=== PATIENT | male | born 1940 | race Caucasian/White ===

== ENCOUNTER 2016-11-09 11:28 | Inpatient (IN) | payer MEDICARE ==
--- NOTE | ~2016-11-09 | DS ---
Unit #: [id number] #: [id number] Patient: LA ZAVALA [id number] [address] [address] [id number] I MR#: [id number] NAME: LA ZAVALA ROOM: 478 Age: 76 Sex: M Admission Date: 11/09/2016 : 1940 Discharge Date: 11/12/2016 Attending Physician: Mynor Dorado M.D. Primary Care Physician: Igor Gilmore M.D. DISCHARGE SUMMARY PRIMARY DIAGNOSIS Right renal mass. PROCEDURE Right hand-assisted laparoscopic nephrectomy. DISPOSITION Home. FOLLOWUP Follow up with Dr. Dorado in one to two weeks. DISCHARGE MEDICATIONS Same as admission medications plus: 1. Colace, #31, twice daily. 2. Eden 5/325, #30, one to two every four to six hours as needed. HISTORY This 76-year-old man with a right renal mass presented for its elective removal. HOSPITAL COURSE The patient was admitted the day of surgery which was uneventfully performed. Postoperative day one, his catheter was removed and he commenced ambulation. The following day, his diet was advanced to clear liquids and on postoperative day three he was tolerating a regular diet with pain well controlled on oral medications and no complaints. On examination, his wound is healing well. His abdomen is soft and appropriate. His discharge hemoglobin is stable at 12.2, BUN 12, creatinine 1.3. He is discharged as noted. Dictated by... Armond Hyatt M.D. KIRSTEN/cora TD: 11/13/2016 09:08 JOB #: [id number] Unit #: [id number] #: [id number] Patient: LA ZAVALA DISCHARGE SUMMARY X Armond Hyatt MD X DISCHARGE SUMMARY
--- NOTE | ~2016-11-09 | OR ---
Unit #: [id number] #: [id number] Patient: LA ZAVALA [id number] [address] [place], [place] [address] [id number] I MR#: [id number] NAME: LA ZAVALA ROOM: 478 Date of Procedure: 11/09/2016 Admission Date: 11/09/2016 Surgeon: Mynor Dorado M.D. : 1940 Attending Physician: Mynor Dorado M.D. Primary Care Physician: Igor Gilmore M.D. OPERATIVE REPORT JOB NOTE: CC: DR. GILMORE. PREOPERATIVE DIAGNOSIS Right renal mass. POSTOPERATIVE DIAGNOSIS Right renal mass. PROCEDURE PERFORMED Right hand-assisted laparoscopic nephrectomy. ANESTHESIA General. CRITICAL CARE RN Manolo Bridges Sr, M.D. ESTIMATED BLOOD LOSS 50 mL. DESCRIPTION OF PROCEDURE After informed consent, he was taken to the operative room, placed under anesthetic, positioned right side up. He was secured to the table at multiple locations using wide tape and surgical strap. The abdomen was prepped and draped in usual sterile fashion. A right lower quadrant incision was made using sharp dissection. The abdomen was insufflated x3. Laparoscopic ports were placed under direct vision. Using sharp and blunt dissection, the white line of Toldt was taken down sharply. The colon was mobilized off the retroperitoneum and kidney. The ureter was located and transected using the laparoscopic stapling device. The dissection was continued up toward the renal hilum and the Jackson maneuver was performed to move the duodenum out of the path of dissection. The renal hilum was located, isolated, and transected using laparoscopic stapling device along with hemoclips. Next, the lateral and posterior dissection was carried out using electrocautery. The most superior part of the dissection was performed and this tissue was and ligated using a stapling device as well. The mass was removed without difficulty. Inspection of the renal hilum with gas pressure on 3 showed no active bleeding. Fascia level for the incision was closed using Vicryl suture in an interrupted and running fashion. The skin edges were approximated using 4-0 Monocryl with Dermabond. A 0.5% Marcaine was used for local anesthetic. All counts were correct at the end of the procedure. The patient tolerated Unit #: [id number] #: [id number] Patient: LA ZAVALA the procedure well, will be taken to recovery and admitted to the hospital. Dictated by... Patrick Squires/faustina TD: 11/10/2016 05:37 JOB #: [id number] OPERATIVE REPORT X Mynor Dorado MD PROCEDURE OPERATIVE NOTE
--- NOTE | ~2016-11-09 | CO ---
Unit #: [id number] #: [id number] Patient: LA ZAVALA [id number] [address] [place], [place] [address] [id number] I MR#: [id number] NAME: LA ZAVALA ROOM: 478 Age: 76 Sex: M Admission Date: 11/09/2016 : 1940 Attending Physician: Mynor Dorado M.D. Primary Care Physician: Igor Gilmore M.D. CONSULTATION REPORT REASON FOR HOSPITALIZATION The patient is a 76-year-old white male with a history of hypertension and hyperlipidemia, who is in for routine physical when it was noted he had microscopic hematuria. He had no symptoms at that time. It was repeated and persisted. CT scan was performed and showed a 3.2 cm enhancing mass in the lateral upper mid right kidney, consistent with renal cell carcinoma. He was referred to Dr. Dorado, who operated yesterday. He had a right nephrectomy. He has done well postoperative, except for some hypertension which has essentially resolved overnight. He has been started back on his home. Currently his is in the room. He is awake, alert and oriented times three, in no acute distress. Pain seems to be well controlled. PAST MEDICAL HISTORY 1. History of hypertension. 2. Hyperlipidemia. 3. BPH. 4. Right nephrectomy. 5. Hyperlipidemia. PAST SURGICAL HISTORY Right lobectomy as a child. SOCIAL HISTORY Prior smoker. Occasional alcohol use. No street drug use. FAMILY HISTORY Noncontributory. ALLERGIES No known drug allergies. PREADMISSION MEDICATIONS 1. Pravastatin 40 mg daily. 2. Amlodipine 5 mg daily. 3. Multivitamins 1 daily. 4. Losartan 50 mg daily. 5. Aspirin 81 mg daily. PHYSICAL EXAMINATION GENERAL: He is awake, alert and oriented times three, in no acute distress. VITALS: Afebrile, pulse 99, respiratory rate 26, blood pressure 135/80, O2 saturations 100% on 2 liters. Unit #: [id number] #: [id number] Patient: LA ZAVALA HEENT: Unremarkable except for nasal cannula in place. NECK: Supple without jugular venous distension, bruits, adenopathy or thyromegaly. CHEST: Clear to auscultation. HEART: Regular rate and rhythm without any murmurs, rubs or gallops. ABDOMEN: No bowel sounds. Incisions appear to be healing well without any evidence of infection. EXTREMITIES: No clubbing, cyanosis or edema. SCDs are noted to be on his bilateral lower extremities. /RECTAL: Deferred. NEUROLOGIC: Grossly intact. DIAGNOSTIC STUDIES LABORATORY: Not available. ASSESSMENT 1. Status post right nephrectomy. 2. Hypertension. 3. Hyperlipidemia. PLAN Home medications have been resumed. His blood pressure is controlled at this point. Will check his a.m. labs. Watch his urine output. He has an incentive spirometer which he is encouraged to use q.2 h. while awake. SCDs are on for DVT prophylaxis. Will follow in the postoperative period for any problems that arise. Thank you for the consultation. Dictated by... Igor Gilmore M.D. MERCEDEZ/tony TD: 11/10/2016 15:55 JOB #: [id number] CONSULTATION REPORT X Igor Gilmore MD X CONSULTATION REPORT
--- NOTE | ~2016-11-09 | A ---
[facility] Nutrition Therapy DATE: 11/11/16 Patient: LA ZAVALA Physician: MIGUEL Address: [facility] Room/Bed: [address] [place] [address], Zip: [place] [address] Admit Date: 11/09/16 Date of : 40 Height: 5 11 Weight: 124 56.5 NUTRITIONAL ASSESSMENT: REASON: PT SEEN FOR LOW BMI PT IS 76 Y.O. MALE ADMITTED FOR RENAL MASS PMH: HTN, HLD, BPH, RECENT (R) NEPHRECTOMY Anthropometrics: 5'11", WT: 124# (56 KG), BMI: 17.3, 72%IBW Labs: GLU: 111, GFR: 57.0 Meds: PEPCID, COLACE, LIPITOR, ZOFRAN I/O & Bowel function: 7490/4368 Skin Integrity: DRY SKIN NOTED ALL OVER BODY Estimated Nutrition Needs: INCREASED NUTRIENT NEEDS 2' CURRENT CONDITION, PT UNDERWEIGHT AND WEIGHT LOSS NOTED. Assessment: CHART REVIEWED AND EVENTS NOTED. PT SEEN FOR LOW BMI. PT REPORTS FAIR/GOOD PO INTAKE AND APPETITE, NO C/O N/V/D. PT NOTES UBW IS ~130#/NOTES LOSING ~6# SINCE AUGUST 2016/4.6% PAST 2 MONTHS. OF NOTE, PT IS S/P POD #2 (R) NEPHRECTOMY. THIS RD ENCOURAGED SLOW GRADUAL PO INTAKE +SUPPLEMENT INTAKE, PT AGREED TO ENSURE SHAKES BID, RD WILL ORDER. PT REPORTED NO DIET QUESTIONS AT THIS TIME. Dx: INCREASED NUTRIENT NEEDS R/T CURRENT CONDITION AEB LOW BMI OF 17.3, 72%IBW, WEIGHT LOSS NOTED. -PREDICTED SUBOPTIMAL NUTRIENT INTAKE R/T DX, DECREASED APPETITE AEB LOW BMI NOTED. Intervention: 1. REGULAR DIET 2. NORMA/VANILLA ENSURE SHAKES BID Monitoring, Evaluation and Goals: 1. PO INTAKE; PROVIDE AND CONSUME ADEQUATE NUTRITION W/NO C/O N/V/D (PO>50%) 2. WEIGHTS; PREVENT FURTHER WEIGHT LOSS; PROMOTE GRADUAL WEIGHT GAIN 3. GI; PROMOTE REGULAR GI FUNCTION MONITOR: -PO INTAKE/APPETITE -WEIGHTS -SUPPLEMENT INTAKE [facility] Nutrition Therapy DATE: 11/11/16 Patient: LA ZAVALA Physician: MIGUEL Address: [address] [place] [address] DRIVE Room/Bed: [address] [place] [address], Zip: [place] [address] Admit Date: 11/09/16 Date of : 40 Height: 5 11 Weight: 124 56.5 Recommendations: 1. CONTINUE CURRENT DIET ORDER ABOVE TO OFFER MORE FOOD CHOICES 2. ORDER NORMA ENSURE SHAKES BID W/MEALS 3. ENCOURAGE ADEQUATE KCAL, PROTEIN AND FLUID INTAKE 2' PT UNDERWEIGHT, WEIGHT LOSS NOTED RD WILL F/U PER PROTOCOL PT IS MODERATELY COMPROMISED Respectfully, JOSE ARECHIGA MS, RD, LD Food and Nutritional Services [facility] cc: client file
[~2016-11-09 11:28] MED LIST: AMLODIPINE BESYL5 MG PO; ASPIRIN81 M2 PO; LOSARTAN POTASS50 MG PO; MULTI VITAMIN1 EACH PO; PRAVASTATIN SOD40 MG PO
[2016-11-10 11:54] LABS: BASOPHIL# 0.1 X10e3 (0-0.3); BASOPHIL% 0.5 % (0-2.5); HEMATOCRIT 40.7 % (38.0-50.0); HEMOGLOBIN 13.3 gm/dL (13.0-16.0); LYMPHOCYTE# 0.5 X10e3 (1.0-3.5); LYMPHOCYTE% 4.6 % (17.0-45.0); MEAN CELL VOLUME 90.6 FL (83-96); MEAN CORPUSCULAR HEMOGLOBIN 29.6 PG (28-34); MEAN CORPUSCULAR HGB CONC 32.6 g/dL (30-36); MEAN PLATELET VOLUME 9.5 FL (6.5-11.5); MONOCYTE# 0.6 X10e3 (0-1.0); MONOCYTE% 4.9 % (3.0-12.0); NEUTROPHIL# 10.2 X10e3 (1.5-7.1); PLATELET COUNT 153 X10e3 (140-420); RED BLOOD COUNT 4.49 X10e (3.90-5.60); RED CELL DISTRIBUTION WIDTH 13.6 % (11.0-15.5); WHITE BLOOD COUNT 11.4 X10e3 (4.0-10.5)
[2016-11-10 11:58] LABS: DIFF IND NO
[2016-11-10 12:33] LABS: BUN/CREATININE RATIO 8.66; CALCIUM SERUM 8.3 mg/dL (8.4-10.2); CREATININE SERUM 1.5 mg/dL (0.6-1.4); GLOM FILT RATE Estimated 48.4 mL/min (>60); POTASSIUM 4.5 mmol/L (3.5-5.1)
[2016-11-11 04:24] LABS: BUN/CREATININE RATIO 9.23; CALCIUM SERUM 8.8 mg/dL (8.4-10.2); CREATININE SERUM 1.3 mg/dL (0.6-1.4); POTASSIUM 4.7 mmol/L (3.5-5.1)
[2016-11-11 08:19] LABS: BASOPHIL% 0.3 % (0-2.5); EOSINOPHIL# 0.1 X10e3 (0-0.7); EOSINOPHIL% 0.5 % (0.0-7.0); HEMATOCRIT 45.8 % (38.0-50.0); HEMOGLOBIN 14.6 gm/dL (13.0-16.0); LYMPHOCYTE% 9.2 % (17.0-45.0); MEAN CELL VOLUME 90.5 FL (83-96); MEAN CORPUSCULAR HEMOGLOBIN 28.8 PG (28-34); MEAN CORPUSCULAR HGB CONC 31.9 g/dL (30-36); MEAN PLATELET VOLUME 9.8 FL (6.5-11.5); MONOCYTE# 0.8 X10e3 (0-1.0); MONOCYTE% 6.9 % (3.0-12.0); NEUTROPHIL# 9.2 X10e3 (1.5-7.1); NEUTROPHIL% 83.1 % (40-75); PLATELET COUNT 168 X10e3 (140-420); RED BLOOD COUNT 5.06 X10e (3.90-5.60); RED CELL DISTRIBUTION WIDTH 14.1 % (11.0-15.5)
[2016-11-11 08:23] LABS: DIFF IND NO
[2016-11-12 04:56] LABS: BUN/CREATININE RATIO 9.23; CALCIUM SERUM 8.5 mg/dL (8.4-10.2); CREATININE SERUM 1.3 mg/dL (0.6-1.4); POTASSIUM 4.5 mmol/L (3.5-5.1)
[2016-11-12 05:18] LABS: BASOPHIL# 0.1 X10e3 (0-0.3); BASOPHIL% 0.7 % (0-2.5); EOSINOPHIL# 0.3 X10e3 (0-0.7); EOSINOPHIL% 3.4 % (0.0-7.0); HEMATOCRIT 37.1 % (38.0-50.0); LYMPHOCYTE# 1.4 X10e3 (1.0-3.5); LYMPHOCYTE% 17.3 % (17.0-45.0); MEAN CELL VOLUME 90.3 FL (83-96); MEAN CORPUSCULAR HEMOGLOBIN 29.6 PG (28-34); MEAN CORPUSCULAR HGB CONC 32.8 g/dL (30-36); MEAN PLATELET VOLUME 9.5 FL (6.5-11.5); MONOCYTE# 0.6 X10e3 (0-1.0); MONOCYTE% 6.9 % (3.0-12.0); NEUTROPHIL# 5.8 X10e3 (1.5-7.1); NEUTROPHIL% 71.7 % (40-75); PLATELET COUNT 127 X10e3 (140-420); RED BLOOD COUNT 4.11 X10e (3.90-5.60); RED CELL DISTRIBUTION WIDTH 13.8 % (11.0-15.5); WHITE BLOOD COUNT 8.1 X10e3 (4.0-10.5)
[2016-11-12 05:32] LABS: DIFF IND NO; HEMOGLOBIN 12.2 gm/dL (13.0-16.0)
[2016-11-12] MEDS ORDERED: COLACE PO (10:48)
[2016-11-12] MEDS ORDERED: HYDROCODONE/APA1 T15 PO (10:53)
== END 2016-11-12 15:00 | disposition home or self-care (01) | DRG 661 ==
LOC: CSUR 11:28 → C4C 13:06
PROVIDERS: Internal Medicine; Pain Medicine Pain Medicine; Urology
PROC: 0TT00ZZ Resection of Right Kidney, Open Approach (ICD-10-PCS; principal; 2016-11-09 13:30)
DX: N28.89 Other specified disorders of kidney and ureter (principal); R31.29 Other microscopic hematuria; I10 Essential (primary) hypertension; E78.5 Hyperlipidemia, unspecified; K21.9 Gastro-esophageal reflux disease without esophagitis
CPT/HCPCS: 80048; 83735; 85025; 88307; 94760; J0131; J0330; J0690; J1170; J1650; J2250; J2310; J2405; J3010

== ENCOUNTER → 2016-12-28 | Outpatient (CLI) | payer MEDICARE ==
[~2016-12-28] MED LIST changes: +COLACE PO; +HYDROCODONE/APA1 T15 PO
--- NOTE | ~2016-12-28 | HM ---
Unit #: [id number] #: [id number] Patient: LA ZAVALA [id number] [address] [address] [id number] O MR#: [id number] NAME: LA ZAVALA : 1940 SEX: M STUDY DATE/TIME: 12/28/2016 UNIT: [facility] ROOM: STUDY DESCRIPTION: Holter Monitor Attending Physician: Igor Gilmore M.D. Referring Physician: Igor Gilmore M.D. Primary Care Physician: Igor Gilmore M.D. CARDIOLOGY REPORT EXAM Agjpml-ajwh-avgy Holter DATE APPLIED 12/28/2016 DATE SCANNED 12/30/[address] Gilmore READ BY Dr. Aly REASON FOR THE STUDY Dysrhythmia. FINDINGS Underlying rhythm is normal sinus rhythm with an average heart rate of 74 beats per minute, minimum heart rate of 48 beats per minute and a maximum heart rate of 121 beats per minute. The minimum heart rate of 48 beats per minute is noted at 5:52 a.m. The maximum heart rate of 121 beats per minute is noted at 10:20 a.m. Patient had a 1.5 second pause noted at 8:42 p.m. Patient has 69 single multifocal premature ventricular complexes noted. Patient had 1376 single premature atrial complexes, 40 atrial couplets and 50 atrial bigeminy noted. Patient had two 8 to 10 beat runs of atrial fibrillation with heart rate ranging from 120 to 130 beats per minute. Patient did not record any symptoms. CONCLUSION 1. Underlying rhythm is normal sinus rhythm with an average heart rate of 74 beats per minute, minimum heart rate of 48 beats per minute and a maximum heart rate of 121 beats per minute. 2. No sustained atrial or ventricular arrhythmias noted. 3. No significant pauses noted. 4. Rare single premature ventricular complex noted. 5. Frequent single premature atrial complex noted. 5. Patient had two short runs of atrial fibrillation. Patient had 8 to 10 beats of atrial fibrillation with heart rate ranging from 120 to 130 beats per minute. 6. Patient did not record any symptoms. Unit #: [id number] #: [id number] Patient: LA ZAVALA Dictated by... Patrick Melara TD: 01/04/2017 18:04 JOB #: [id number] CC: Igor Gilmore M.D. CARDIOLOGY REPORT Page 1 of 1 X Zulema Aly MD <ELECTRONICALLY SIGNED> 04/03/17 1429 HOLTER MONITOR REPORT
== END | disposition home or self-care (01) ==
LOC: CEKG 09:35
DX: I49.9 Cardiac arrhythmia, unspecified (principal)
CPT/HCPCS: 93225; 93226

== ENCOUNTER → 2017-01-25 | Outpatient (CLI) | payer MEDICARE ==
--- NOTE | ~2017-01-25 | CR63 ---
[facility] A Service of [facility] & [facility] RADIOLOGY TEXT RESULTS PATIENT: LA ZAVALA LOCATION: [facility] : 40 UNIT #: [id number] AGE: [address]: Mynor Dorado MD SEX: M ORDER DR: [id number] [facility] [address] [place], [place] [address] [id number] O MR#: [id number] Acc #: [id number] NAME: LA ZAVALA : 1940 SEX: M STUDY DATE/TIME: 01/25/2017 13:31 UNIT: [facility] ROOM: STUDY DESCRIPTION: CR Chest 2 View Attending Physician: Mynor Dorado M.D. Referring Physician: Mynor Dorado M.D. Ordering Physician: Mynor Dorado M.D. Primary Care Physician: Igor Gilmore M.D. MEDICAL IMAGING REPORT This report is preliminary unless electronic signature is present EXAM PA and lateral chest 01/25/2017 HISTORY History supplied is elevated blood pressure, previous right-sided kidney mass. Previous with right-sided lobectomy in 1945. FINDINGS PA and lateral views are obtained. There is chronic volume loss in the right hemithorax, unchanged from the patient's previous study. The left lung is clear. No acute infiltrates are identified. CONCLUSION Chronic volume loss right lung related to prior lobectomy. Left lung is clear. There is no acute process identified. Dictated by... Nic Pedroza M.D. THIS IS AN ELECTRONICALLY VERIFIED REPORT Nic Pedroza M.D. at 01/26/2017 7:28 AM JESSICA/rimma TD: 01/25/2017 17:56 JOB #: [id number] MEDICAL IMAGING REPORT Page 1 of 1 COPY
--- NOTE | ~2017-01-25 | US77 ---
[facility] A Service of [facility] RADIOLOGY TEXT RESULTS PATIENT: LA ZAVALA LOCATION: [facility] : 40 UNIT #: [id number] AGE: [address]: Mynor Dorado MD SEX: M ORDER DR: [id number] [address] [id number] [facility] [place] [facility]. [place], [place] [address] [id number] O MR#: [id number] Acc #: [id number] NAME: LA ZAVALA : 1940 SEX: M STUDY DATE/TIME: 01/25/2017 14:36 UNIT: [facility] ROOM: STUDY DESCRIPTION: US Kidney Bilateral Complete Attending Physician: Mynor Dorado M.D. Referring Physician: Mynor Dorado M.D. Ordering Physician: Mynor Dorado M.D. Primary Care Physician: Igor Gilmore M.D. MEDICAL IMAGING REPORT This report is preliminary unless electronic signature is present EXAM Renal ultrasound INDICATIONS Renal cell carcinoma; patient was diagnosed on a CT scan which was performed September 25, 2016, this was involving the right kidney, patient is now status post right nephrectomy. TECHNIQUE Rendon-scale and color Doppler sonographic images were obtained through the kidneys and bladder. FINDINGS No obvious abnormality is seen within the right renal fossa, but images through this area are technically limited. Left kidney does not demonstrate any hydronephrosis and there are no solid or cystic renal masses. Patient's prostate gland is enlarged. IMPRESSION Relatively limited examination of the right renal fossa; this would be better assessed with CT. Left kidney appears unremarkable and patient is again noted to have prostatic enlargement. Dictated by... Kary Herbert M.D. THIS IS AN ELECTRONICALLY VERIFIED REPORT Kary Herbert M.D. at 01/26/2017 4:46 PM AFF/psc TD: 01/25/2017 21:58 JOB #: [id number] [facility] A Service of [facility] RADIOLOGY TEXT RESULTS PATIENT: LA ZAVALA LOCATION: [facility] #: [id number] : 40 UNIT #: [id number] AGE: [address]: Mynor Dorado MD SEX: M ORDER DR: MEDICAL IMAGING REPORT Page 1 of 1 COPY
[2017-01-25 13:18] LABS: CREATININE SERUM 1.3 mg/dL (0.6-1.4)
== END | disposition home or self-care (01) ==
LOC: CGUS 12-08 12:45
PROVIDERS: Urology
DX: N28.89 Other specified disorders of kidney and ureter (principal); N40.0 Benign prostatic hyperplasia without lower urinary tract symptoms; Z90.2 Acquired absence of lung [part of]
CPT/HCPCS: 36415; 71020; 76770; 82565; 84520

== ENCOUNTER → 2017-04-28 | Outpatient (CLI) | payer MEDICARE ==
--- NOTE | ~2017-04-28 | CT4 ---
[facility] A Service of [facility] & [facility] RADIOLOGY TEXT RESULTS PATIENT: LA ZAVALA [facility] UNIT #: [id number] AGE: [address]: Mynor Dorado MD SEX: M ORDER DR: [id number] [facility] [address] [place], [place] [address] [id number] O MR#: [id number] Acc #: [id number] NAME: LA ZAVALA : 1940 SEX: M STUDY DATE/TIME: 04/28/2017 9:19 UNIT: [facility] ROOM: STUDY DESCRIPTION: CT Abd and Pelv Wo Cont Attending Physician: Mynor Dorado M.D. Referring Physician: Mynor Dorado M.D. Ordering Physician: Mynor Dorado M.D. Primary Care Physician: Igor Gilmore M.D. MEDICAL IMAGING REPORT This report is preliminary unless electronic signature is present EXAM CT of the abdomen and pelvis without contrast HISTORY Follow-up renal cell carcinoma. No current complaints. Previous right lobectomy as a child and right nephrectomy. COMPARISON 09/27/2016 TECHNIQUE The study was ordered without IV contrast. Axial 5.0 mm images were obtained through the chest without IV contrast. This CT exam was performed with one or more of the following radiation dose reduction techniques: automatic exposure control, adjustment of mA and/or kV according to patient size, and iterative reconstruction. FINDINGS The patient has a right pneumonectomy. There are postoperative changes in the right base. There are no comparison images. The prior studies had all the images starting below the diaphragm. The soft tissue in the right base has an appearance suggesting scarring and the history states that the patient had surgery as a child. The mediastinum is shifted to the right side. The liver, gallbladder, spleen, pancreas and left adrenal gland are normal. The right adrenal gland is present and is normal. The right kidney has been resected. The left kidney is normal. There is no adenopathy visible. The aorta is normal in size. Bowel is normal. The bladder and prostate gland are normal. Bones show mild degenerative changes. [facility] A Service of [facility] & [facility] RADIOLOGY TEXT RESULTS PATIENT: LA ZAVALA [facility] UNIT #: [id number] AGE: [address]: Mynor Dorado MD SEX: M ORDER DR: IMPRESSION 1. Prior nephrectomy. 2. Marked volume reduction in the right hemithorax with shift of the mediastinum to the right side and there is soft tissue in the right base associated with calcifications and staple lines that probably represent postoperative scarring. The patient apparently had a lobectomy as a child. There are no old studies showing the right base. Soft tissue in this area has concave margins and measures up to 3.0-4.0 cm in diameter. 3. There is no adenopathy or evidence of recurrent or metastatic renal cell carcinoma. Dictated by... Arnaud Abraham M.D. THIS IS AN ELECTRONICALLY VERIFIED REPORT Arnaud Abraham M.D. at 04/28/2017 2:41 PM Moses TD: 04/28/2017 12:58 JOB #: [id number] MEDICAL IMAGING REPORT Page 1 of 1 COPY
--- NOTE | ~2017-04-28 | CR63 ---
[facility] A Service of [facility] & [facility] RADIOLOGY TEXT RESULTS PATIENT: LA ZAVALA [facility] : [facility] UNIT #: [id number] AGE: [address]: Mynor Dorado MD SEX: M ORDER DR: [id number] [facility] [address] [place], [place] [address] [id number] O MR#: [id number] Acc #: [id number] NAME: LA ZAVALA : 1940 SEX: M STUDY DATE/TIME: 04/28/2017 8:58 UNIT: [facility] ROOM: STUDY DESCRIPTION: CR Chest 2 View Attending Physician: Mynor Dorado M.D. Referring Physician: Mynor Dorado M.D. Ordering Physician: Mynor Dorado M.D. Primary Care Physician: Igor Gilmore M.D. MEDICAL IMAGING REPORT This report is preliminary unless electronic signature is present EXAM Chest 04/28/2017. [facility] HISTORY 76-year-old male patient history of renal malignancy. Prior right lower lobectomy. Patient gives history of short of breath and high blood pressure noted today. COMPARISON: Chest 11/30/2013, 01/25/2017. FINDINGS PA and lateral chest views remain markedly abnormal but stable. There is again considerable volume loss on the right with postsurgical resection of right lower lobe by history. There is complete shift of mediastinal structures to the right. Aerated remaining right lung appears bullous but stable. Left lung shows compensatory hyperinflation but remains clear. IMPRESSION Stable chest. See complete report. Dictated by... Ramiro Bailey M.D. THIS IS AN ELECTRONICALLY VERIFIED REPORT Ramiro Bailey M.D. at 04/28/2017 12:55 PM Randi TD: 04/28/2017 11:45 JOB #: [id number] MEDICAL IMAGING REPORT Page 1 of 1 COPY
[2017-04-28 09:52] LABS: HEMATOCRIT 43.1 % (38.0-50.0); HEMOGLOBIN 14.2 gm/dL (13.0-16.0); MEAN CELL VOLUME 91.5 FL (83-96); MEAN CORPUSCULAR HEMOGLOBIN 30.2 PG (28-34); RED BLOOD COUNT 4.71 X10e (3.90-5.60); RED CELL DISTRIBUTION WIDTH 12.7 % (11.0-15.5); WHITE BLOOD COUNT 6.8 X10e3 (4.0-10.5)
[2017-04-28 10:28] LABS: ALBUMIN SERUM 4.3 g/dL (3.5-5.0); BILIRUBIN,TOTAL 0.9 mg/dL (0.2-2.0); BUN/CREATININE RATIO 18.33; CALCIUM SERUM 9.2 mg/dL (8.4-10.2); CREATININE SERUM 1.2 mg/dL (0.6-1.4); GLOM FILT RATE Estimated 58.4 mL/min (>60); POTASSIUM 4.5 mmol/L (3.5-5.1); PROTEIN TOTAL SERUM 7.3 g/dL (6.0-8.3)
== END | disposition home or self-care (01) ==
LOC: CCAT 08:40
PROVIDERS: Urology
DX: Z08 Encounter for follow-up examination after completed treatment for malignant neoplasm (principal); R91.8 Other nonspecific abnormal finding of lung field; J98.4 Other disorders of lung; Z85.528 Personal history of other malignant neoplasm of kidney; Z90.2 Acquired absence of lung [part of]; Z90.5 Acquired absence of kidney
CPT/HCPCS: 36415; 71020; 74176; 80053; 85027